=== PATIENT | male | born 1970 | race Caucasian/White ===

== ENCOUNTER 2018-04-15 11:09 | Emergency (ER) | payer SELFPAY ==
[2018-04-15] MEDS ORDERED: SOD CHLORIDE 0.9% 1,000 ML IV (11:22)
== END 2018-04-15 11:41 | disposition left against medical advice (07) ==
LOC: E/R 11:09
DX: F10.920 Alcohol use, unspecified with intoxication, uncomplicated (principal)
CPT/HCPCS: 99283